=== PATIENT | male | born 1955 | race African-American/Black ===

== ENCOUNTER 2023-04-14 15:35 | Emergency (ER) | payer MEDICARE, MEDICAID ==
[~2023-04-14] VITALS: Ht 175.3 cm; Wt 75.0 kg
[2023-04-14 15:45] VITALS: BP 124/72; PULSE 90; RESP 18; TEMP 98.8; O2SAT 99
[2023-04-14] MEDS ORDERED: BACITRACIN ZINC OINT UDPKT TOP ONE (16:30)
[2023-04-14] MEDS ORDERED: LIDOCAINE HCL/PF 1% 10 MG/ML 5ML VIAL INFIL ONE (16:30)
[2023-04-14] MEDS ORDERED: TETANUS, DIPHTHERIA, PERTUSSIS VAC/PF 0.5ML (>10YR OLD) IM ONE (16:30)
[2023-04-14] MEDS ORDERED: AMOX1TAB16 MT (18:39)
== END 2023-04-14 19:18 | disposition home or self-care (01) ==
LOC: ER 15:35
DX: S51.851A Open bite of right forearm, initial encounter (principal); W54.0XXA Bitten by dog, initial encounter; Y93.89 Activity, other specified; Y92.89 Other specified places as the place of occurrence of the external cause; Y99.8 Other external cause status
CPT/HCPCS: 90471; 90715; 99283; J3490

== ENCOUNTER 2024-06-17 17:36 | Emergency (ER) | payer MEDICARE, MEDICAID ==
[~2024-06-17] VITALS: Ht 182.9 cm; Wt 77.0 kg
[~2024-06-17 17:36] MED LIST: AMOX1TAB16 MT
[2024-06-17 17:38] VITALS: BP 126/81; PULSE 79; RESP 20; TEMP 36.9; O2SAT 98
== END 2024-06-17 20:16 | disposition home or self-care (01) ==
LOC: ER 17:36
DX: T75.89XA Other specified effects of external causes, initial encounter (principal); H57.13 Ocular pain, bilateral; X58.XXXA Exposure to other specified factors, initial encounter; Y93.89 Activity, other specified; Y92.89 Other specified places as the place of occurrence of the external cause; Y99.8 Other external cause status
CPT/HCPCS: 99283